=== PATIENT | male | born 1990 | race American Indian/Alaskan Native ===

== ENCOUNTER 2020-11-05 09:04 | Emergency (ER) | payer MEDICARE ==
--- NOTE | 2020-11-05 09:15 | Emergency Department Report ---
ED Abdominal Pain HPI - General Stated Complaint: STOMACH PAIN PUI?: No Time Seen by Provider: 11/05/20 09:07 Source: patient, EMS Mode of arrival: Ambulatory Limitations: No Limitations - History of Present Illness Initial Comments: Chief complaint: "I was vomiting blood. Abdominal pain." HPI: This is a 30-year-old male with history of bipolar disorder, schizophrenia, hypertension and diabetes mellitus who presents via EMS for abdominal pain. He reports vomiting blood in the middle of the night. He also has diarrhea. Mild crampy abdominal pain which is resolved. No radiation. He denies dark stools. One episode of hematemesis on last night. Patient recently was kicked out of the halfway. He is sleeping at a [employer] bus station. Patient states that he takes 8 medications for his medical issues. He is currently homeless. Parents live in [place]. He does not have any family or social support located in [place]. MD Complaint: abdominal pain -: Gradual Location: diffuse Radiation: none Severity: mild Severity scale (0 -10): 4 Quality: cramping Consistency: now resolved Improves With: nothing Worsens With: nothing Context: possible food poisoning Associated Symptoms: nausea, vomiting, diarrhea, hematemesis - Related Data Allergies Allergy/AdvReac Type Severity Reaction Status Date / Time No Known Allergies Allergy Unverified 11/05/20 10:11 ED Review of Systems ROS: Stated complaint: STOMACH PAIN Other details as noted in HPI Comment: All other systems reviewed and negative Constitutional: denies: fever, malaise Respiratory: denies: cough, shortness of breath Cardiovascular: denies: chest pain Gastrointestinal: abdominal pain, nausea, vomiting, diarrhea, hematemesis. denies: hematochezia ED Past Medical Hx - Past Medical History Previous Medical History?: Yes Hx Hypertension: Yes Hx Diabetes: Yes Hx Psychiatric Treatment: Yes (Bipolar disorder, schizophrenia) - Surgical History Past Surgical History?: No - Family History Family history: hypertension - Social History Smoking Status: Current Every Day Smoker Substance Use Type: None ED Course Vital Signs 11/05/20 11/05/20 11/05/20 09:16 09:30 09:43 Temperature 98.6 F Pulse Rate 75 71 74 Respiratory 23 20 18 Rate Blood Pressure 136/79 136/79 136/76 O2 Sat by Pulse 99 99 99 Oximetry 11/05/20 11/05/20 09:46 10:00 Temperature Pulse Rate 74 80 Respiratory 20 24 Rate Blood Pressure 136/79 131/76 O2 Sat by Pulse 98 100 Oximetry ED Medical Decision Making - Lab Data Result diagrams: 11/05/20 09:38 11/05/20 09:38 - Medical Decision Making Food poisoning: No tenderness fever leukocytosis indicate peritonitis or acute inflammatory intra-abdominal process. Clinically no signs of active GI bleeding. Recommended clear liquid diet CBC chemistry within normal limits with exception of mild hypokalemia. No leukocytosis. Patient discharged home. Critical care attestation.: If time is entered above; I have spent that time in minutes in the direct care of this critically ill patient, excluding procedure time. ED Disposition Clinical Impression: Food poisoning Disposition: DC-01 TO HOME OR SELFCARE Is pt being admited?: No Does the pt Need Aspirin: No Condition: Stable Instructions: Food Poisoning Referrals: ARIANA LY MD [Staff Physician] - 3-5 Days
[2020-11-05 10:04] VITALS: BP 131/76
[2020-11-05 10:09] LABS: Basophils % (Auto) 0.3 % (0.0-1.8); Eosinophils # (Auto) 0.1 K/mm3 (0.0-0.4); Eosinophils % (Auto) 2.9 % (0.0-4.3); Hematocrit 38.9 % (35.5-45.6); Hemoglobin 12.4 gm/dl (11.8-15.2); Lymphocytes # (Auto) 1.1 K/mm3 (1.2-5.4); Lymphocytes % (Auto) 22.7 % (13.4-35.0); Mean Corpuscular HGB Conc 32 % (32-34); Mean Corpuscular Volume 78 fl (84-94); Monocytes # (Auto) 0.5 K/mm3 (0.0-0.8); Monocytes % (Auto) 10.3 % (0.0-7.3); Platelet Count 180 K/mm3 (140-440); Red Blood Count 4.97 M/mm3 (3.65-5.03); Red Cell Distribution Width 16.5 % (13.2-15.2)
[2020-11-05 10:11] LABS: BUN/Creatinine Ratio 9; Blood Urea Nitrogen 8 mg/dL (9-20); Calcium 9.1 mg/dL (8.4-10.2); Hemolysis Index 3
[2020-11-05] MEDS ORDERED: ACETAMINOPHEN 500 MG TAB PO ONE (11:00)
[2020-11-05] MEDS ORDERED: ONDANSETRON 4 MG ODT TAB PO ONE (11:00)
[2020-11-05] MEDS ORDERED: ALUM-MAG HYDROXIDE-SIMETHICONE 200-200-20MG/5ML ORAL LIQD 30 ML PO ONE (11:00)
== END 2020-11-05 10:55 | disposition home or self-care (01) ==
LOC: ED 09:04
DX: A05.9 Bacterial foodborne intoxication, unspecified (principal); I10 Essential (primary) hypertension; E11.9 Type 2 diabetes mellitus without complications; F17.200 Nicotine dependence, unspecified, uncomplicated
CPT/HCPCS: 36415; 80048; 85025

== ENCOUNTER 2020-11-07 03:03 | Emergency (ER) | payer MEDICARE | END 2020-11-07 06:30 | disposition left against medical advice (07) | LOC: ED 03:03 | DX: Z00.8 Encounter for other general examination (principal); Z53.21 Procedure and treatment not carried out due to patient leaving prior to being seen by health care provider ==

== ENCOUNTER 2020-11-07 08:58 | Emergency (ER) | payer MEDICARE ==
[2020-11-07 09:46] VITALS: BP 158/93
--- NOTE | 2020-12-08 08:36 | ED Elopement Review ---
ED Pt Elopement review - Results review Lab results: I did not evaluate this patient. The patient eloped from the emergency department.
== END 2020-11-07 12:07 | disposition left against medical advice (07) ==
LOC: ED 08:58
DX: M54.9 Dorsalgia, unspecified (principal); Z53.21 Procedure and treatment not carried out due to patient leaving prior to being seen by health care provider

== ENCOUNTER 2020-11-08 17:21 | Emergency (ER) | payer MEDICARE ==
[2020-11-08 17:30] VITALS: BP 150/100
== END 2020-11-08 19:15 | disposition left against medical advice (07) ==
LOC: ED 17:21
DX: R53.1 Weakness (principal); Z53.21 Procedure and treatment not carried out due to patient leaving prior to being seen by health care provider

== ENCOUNTER 2021-08-26 01:48 | Emergency (ER) | payer MEDICARE ==
[2021-08-26 03:39] LABS: Bilirubin,Urine NEG (Negative); Blood,Urine NEG (Negative); Color,Urine Yellow (Yellow); Mucus,Urine 1+ /HPF; Protein,Urine <15 mg/dL mg/dL (Negative)
[2021-08-26 03:39] LABS: Basophils % (Auto) 0.5 % (0.0-1.8); Eosinophils # (Auto) 0.1 K/mm3 (0.0-0.4); Eosinophils % (Auto) 2.1 % (0.0-4.3); Hematocrit 38.5 % (35.5-45.6); Hemoglobin 12.1 gm/dl (11.8-15.2); Lymphocytes # (Auto) 1.9 K/mm3 (1.2-5.4); Lymphocytes % (Auto) 35.1 % (13.4-35.0); Mean Corpuscular HGB Conc 31 % (32-34); Mean Corpuscular Volume 79 fl (84-94); Monocytes # (Auto) 0.5 K/mm3 (0.0-0.8); Monocytes % (Auto) 9.1 % (0.0-7.3); Platelet Count 177 K/mm3 (140-440); Red Blood Count 4.85 M/mm3 (3.65-5.03); Red Cell Distribution Width 15.9 % (13.2-15.2)
[2021-08-26 03:40] LABS: Alanine Aminotransferase 21 units/L (7-56); Albumin 4.2 g/dL (3.9-5); BUN/Creatinine Ratio 13; Blood Urea Nitrogen 12 mg/dL (9-20); Calcium 8.6 mg/dL (8.4-10.2); Hemolysis Index 5
[2021-08-26 03:47] LABS: Amphetamine Screen,Urine Negative; Benzodiazepines Screen,Urine Negative; Cannabinoid Screen,Urine Negative; Cocaine Screen,Urine Negative; Methadone Screen,Urine Negative; Opiate Screen,Urine Negative
--- NOTE | 2021-08-26 05:19 | Emergency Department Report ---
ED Psych HPI - General Chief Complaint: Psych Stated Complaint: SUICIDAL IDEATIONS Time Seen by Provider: 08/26/21 02:08 Source: patient, EMS Mode of arrival: Ambulatory - History of Present Illness Initial Comments: Patient is a 31-year-old male presenting to ED with complaint of suicidal ideation. States that it is his birthday today and that he became depressed thinking about his mother who passed when he was a child. States he hears voices in his head telling him to hurt himself. States he thought of taking a knife to his neck. MD Complaint: suicidal ideation, feels depressed Associated Psychiatric Symptoms: suicidal ideation Improves With: none Worsens With: none Associated Symptoms: denies other symptoms Treatments Prior to Arrival: none If Self Harm: admits thoughts of, has plan - Related Data Allergies Allergy/AdvReac Type Severity Reaction Status Date / Time No Known Allergies Allergy Unverified 11/05/20 10:11 ED Review of Systems ROS: Stated complaint: SUICIDAL IDEATIONS Other details as noted in HPI Comment: All other systems reviewed and negative Constitutional: denies: chills, fever Respiratory: denies: cough, shortness of breath, wheezing Cardiovascular: denies: chest pain, palpitations Endocrine: no symptoms reported Gastrointestinal: denies: abdominal pain, nausea, diarrhea Genitourinary: denies: urgency, dysuria Musculoskeletal: denies: back pain, joint swelling, arthralgia Skin: denies: rash, lesions Neurological: denies: headache, weakness, paresthesias Psychiatric: depression, auditory hallucinations, suicidal thoughts ED Past Medical Hx - Past Medical History Previous Medical History?: Yes Hx Hypertension: Yes Hx Diabetes: Yes Hx Psychiatric Treatment: Yes (Bipolar disorder, schizophrenia) - Surgical History Past Surgical History?: No - Social History Smoking Status: Current Every Day Smoker Substance Use Type: None ED Physical Exam - General Limitations: No Limitations General appearance: alert, in no apparent distress - Head Head exam: Present: atraumatic, normocephalic - Neck Neck exam: Present: normal inspection - Respiratory Respiratory exam: Present: normal lung sounds bilaterally. Absent: respiratory distress - Cardiovascular Cardiovascular Exam: Present: regular rate, normal rhythm. Absent: systolic murmur, diastolic murmur, rubs, gallop - GI/Abdominal GI/Abdominal exam: Present: soft. Absent: distended, tenderness - Rectal Rectal exam: Present: deferred - Neurological Exam Neurological exam: Present: alert, oriented X3, CN II-XII intact - Psychiatric Psychiatric exam: Present: normal affect, normal mood - Skin Skin exam: Present: warm, dry, intact, normal color ED Course Vital Signs 08/26/21 02:07 Temperature 97.8 F Pulse Rate 78 Respiratory 18 Rate Blood Pressure 172/88 [Right] O2 Sat by Pulse 99 Oximetry ED Medical Decision Making - Lab Data Result diagrams: 08/26/21 02:40 08/26/21 02:40 - Medical Decision Making Patient medically cleared. 1013 filed. Patient is currently calm and co operative and awaiting placement. Critical care attestation.: If time is entered above; I have spent that time in minutes in the direct care of this critically ill patient, excluding procedure time. ED Disposition Clinical Impression: Depression with suicidal ideation Disposition: [address] [place] [address] Is pt being admited?: Yes Does the pt Need Aspirin: No Condition: Stable Time of Disposition: 05:21
[2021-08-26 09:42] VITALS: BP 133/107
[2021-08-26] MEDS ORDERED: ACETAMINOPHEN 325 MG TAB PO ONE (10:01)
--- NOTE | 2021-08-26 10:14 | Consultation ---
History of Present Illness - Reason for Consult Consult date: 08/26/21 Reason for consult: SI, hallucinations - History of Present Psychiatric Illness HPI: Patient is a 31-year-old male presenting to ED with complaint of suicidal ideation. States that it is his birthday today and that he became depressed thinking about his mother who passed when he was a child. States he hears voices in his head telling him to hurt himself. States he thought of taking a knife to his neck. The patient was seen today. He says he is depressed and suicidal. His affect is incongruent. He is loud and laughing at times. He says he wants to take a knife and put it up to his neck and cut his throat. The patient says "I have nothing to live for." He says he's depressed a lot. He says voices tell him to kill himself. The patient also says he has a drinking problem. He says "I'm an alcoholic. I drink Smirnof a whole big bottle or two bottles a week." He also says he smokes "a lot of cigarettes every day." The patient says he has a history of schizophrenia and was on abilify. The patient says he lives in a senior living. He says some woman dumped him and abandoned him. PAST PSYCHIATRIC HISTORY Diagnoses: Schizophrenia Suicide attempts or Self-harm behavior: Denies Prior psychiatric hospitalizations: Yes Substance Abuse history: Nicotine, alcohol Previous psychiatric medications tried: Abilify Outpatient treatment: Denies PAST MEDICAL HISTORY: None reported Family Psychiatric History: None reported or documented SOCIAL HISTORY Marital Status: Single Living Arrangements: detention Employment Status: Disabled Access to guns/weapons: Denies Education: History of Abuse: Denies Legal History: Denies REVIEW OF SYSTEMS Constitutional: Negative for weight loss ENT: Negative for stridor Respiratory: Negative for cough or hemoptysis All other systems reviewed and are negative MENTAL STATUS EXAMINATION General Appearance and Behavior: Age appropriate, good hygiene, wearing appropriate clothes, good eye contact, loud Cooperation: irritable, reluctant to cooperate Psychomotor Behavior: Psychomotor normal Mood: depressed Affect and affective range: incongruent with stated mood, laughing Thought Process: illogical Thought Content: SI, hallucinations Speech: normal tone and pace Suicidal Ideation: Yes Homicidal Ideation: Denies Hallucinations: Yes Delusions: None elicited Impulse Control: Limited Insight and Judgment: Limited insight and judgment Memory: Limited Attention: unattentive Orientation: Alert, oriented Assessment and Plan Schizophrenia Treatment Plan 1013 Abilify 5mg po daily Prozac 20mg po daily Doxepin 10mg po qhs Nicotine patch 21mg daily CIWA Protocol Medical: per medical Sitter: defer to primary Disposition: Recommend acute psychiatric inpatient treatment Will follow. Thanks Case staffed with Dr. Meier Medications and Allergies Allergies Allergy/AdvReac Type Severity Reaction Status Date / Time No Known Allergies Allergy Unverified 11/05/20 10:11 Mental Status Exam - Vital signs Last Vital Signs Temp 98.1 F 08/26/21 09:41 Pulse 107 H 08/26/21 09:41 Resp 16 08/26/21 09:41 BP 133/107 08/26/21 09:41 Pulse Ox 95 08/26/21 09:41 Results Result Diagrams: 08/26/21 02:40 08/26/21 02:40 Abnormal lab results 08/26/21 08/26/21 08/26/21 Range/Units 02:40 02:40 02:40 MCV 79 L (84-94) fl MCH 25 L (28-32) pg MCHC 31 L (32-34) % RDW 15.9 H (13.2-15.2) % Lymph % (Auto) 35.1 H (13.4-35.0) % [place] % (Auto) 9.1 H (0.0-7.3) % Glucose 118 H (75-100) mg/dL Salicylates < 0.3 L (2.8-20.0) mg/dL Acetaminophen (10.0-30.0) ug/mL 08/26/21 Range/Units 02:40 MCV (84-94) fl MCH (28-32) pg MCHC (32-34) % RDW (13.2-15.2) % Lymph % (Auto) (13.4-35.0) % [place] % (Auto) (0.0-7.3) % Glucose (75-100) mg/dL Salicylates (2.8-20.0) mg/dL Acetaminophen 5.0 L (10.0-30.0) ug/mL All other labs normal.
[2021-08-26] MEDS ORDERED: chlordiazePOXIDE 25 MG CAP PO PRN (10:23)
[2021-08-26] MEDS ORDERED: LORazepam 2 MG/ML VIAL IV PRN (10:23)
[2021-08-26] MEDS ORDERED: NICOTINE 21 MG/24 HR PATCH TD SCH (11:00)
--- NOTE | 2021-08-26 13:13 | Event Note ---
Date: 08/26/21 Mr. Valentin seen and examined by me this morning with no acute issue other than he repeated to me that he is still suicidal and plan to slash his throat in an attempt to kill himself. He told me that he was from [facility]. He said he was fired from his job for hiking with his boss and currently on disability. He said he has to applied 3 times for disability before it was approved. He wanted to know which psychiatric hospital he was going to be transferred to but i said I'm not sure that it depend. He was laughing out loud sometimes during my examination with this patient. He denies any other modifying or associated factors.
[2021-08-26] MEDS: ARIPiprazole 5 MG TAB PO SCH (15:05)
[2021-08-26] MEDS: FLUoxetine 20 MG CAP PO SCH (15:05)
[2021-08-26] MEDS ORDERED: DOXEPIN 10 MG CAP PO SCH (22:00)
--- NOTE | 2021-08-27 09:59 | Progress Note ---
Subjective - Reason for Consult Consult date: 08/27/21 Reason for consult: SI - Chief Complaint Chief complaint: The patient was seen today. He is now changing his story and says he is not suicidal. The patient says "I'm Okay now. It is Mother's day." The patient says "I have to go wish my mother a Happy Mother's Day. I don't want to be here any more." The patient says "I blew my check, but I can go back to my halfway." He denies SI/HI. He says "no, I'm not suicidal and I'm not hearing voices." REVIEW OF SYSTEMS Constitutional: Negative for weight loss ENT: Negative for stridor Respiratory: Negative for cough or hemoptysis All other systems reviewed and are negative MENTAL STATUS EXAMINATION General Appearance and Behavior: Age appropriate, good hygiene, wearing appropriate clothes, good eye contact, calm, cooperative Cooperation: cooperative Psychomotor Behavior: Psychomotor normal Mood: better Affect and affective range: congruent with stated mood Thought Process: goal directed Thought Content: None Speech: normal tone and pace Suicidal Ideation: Denies Homicidal Ideation: Denies Hallucinations: Denies Delusions: None elicited Impulse Control: Limited Insight and Judgment: Limited insight and judgment Memory: Limited Attention: unattentive Orientation: Alert, oriented Assessment and Plan Schizophrenia Treatment Plan d/c 1013 Abilify 5mg po daily Prozac 20mg po daily Doxepin 10mg po qhs Nicotine patch 21mg daily Medical: per medical Sitter: defer to primary Disposition: Do not recommend acute psychiatric inpatient treatment. The patient understands that if SI/HI arise he is to seek immediate assistance The clinical trial coordinator to further discuss safety plan The patient to follow up with outpatient psych in 7 to 14 days upon discharge. The clinical trial coordinator to provide all necessary outpatient resources Will sign off. Thanks Case staffed with Dr. Meier Mental Status Exam - Vital signs Last Vital Signs Temp 98.1 F 08/26/21 09:41 Pulse 107 H 08/26/21 09:41 Resp 16 08/26/21 09:41 BP 133/107 08/26/21 09:41 Pulse Ox 100 08/27/21 06:01
[2021-08-27] MEDS: ARIPiprazole 5 MG TAB PO SCH (11:22)
[2021-08-27] MEDS: FLUoxetine 20 MG CAP PO SCH (11:22)
--- NOTE | 2021-08-27 11:52 | Event Note ---
Date: 08/27/21 Mr. Noe was seen and examined this morning. Patient seems to be very happy to report that he is going home. He was able to recognize me as I round on him yesterday. Patient denies any suicidal homicidal ideation. He wanted to know if he is going to be discharged home with medication or prescription. I told the patient that he was going to be given the prescription to be filled at any pharmacy. Patient reports no other issues. All paperwork done for patient to be discharged home.
== END 2021-08-27 14:48 | disposition home or self-care (01) ==
LOC: ED 01:48
DX: R45.851 Suicidal ideations (principal); F32.A Depression, unspecified; I10 Essential (primary) hypertension; E11.9 Type 2 diabetes mellitus without complications; F17.200 Nicotine dependence, unspecified, uncomplicated
CPT/HCPCS: 36415; 80053; 80307; 80320; 81001; 85025; 99284; G0480

== ENCOUNTER 2021-09-02 06:22 | Emergency (ER) | payer MEDICARE ==
[2021-09-02 07:35] VITALS: BP 132/74
== END 2021-09-02 10:52 | disposition left against medical advice (07) ==
LOC: ED 06:22
DX: E11.9 Type 2 diabetes mellitus without complications (principal); Z53.21 Procedure and treatment not carried out due to patient leaving prior to being seen by health care provider